=== PATIENT | male | born 1975 | race Caucasian/White ===

== ENCOUNTER 2025-01-12 19:20 | Emergency (ER) | payer SELFPAY ==
[2025-01-12] MEDS: Dexamethasone 4 MG/ML SDV IM ONE (20:11)
[2025-01-12] MEDS: Dexamethasone 4 MG/ML SDV IVPUSH ONE (20:24)
== END 2025-01-12 20:24 | disposition home or self-care (01) ==
LOC: VM.ED 19:20
DX: J30.9 Allergic rhinitis, unspecified (principal)
CPT/HCPCS: 71045; 96372; 99283; 99284; J1100

== ENCOUNTER 2025-08-26 12:27 | Emergency (ER) | payer SELFPAY ==
[2025-08-26] MEDS ORDERED: Sodium Chloride 0.9% 10 ML Syringe FLUSH PRN (12:41)
[2025-08-26 12:59] LABS: BASOPHILS ABSOLUTE AUTO 0.0 x10^3/uL (0.0-0.2); BASOPHILS PERCENT AUTO 0.3 % (0.2-1.2); EOSINOPHILS ABSOLUTE AUTO 0.1 x10^3/uL (0.0-0.5); EOSINOPHILS PERCENT AUTO 1.3 % (0.0-4.0); IMMATURE GRAN ABSOLUTE AUTO 0.01 x10^3/uL (0.00-0.07); IMMATURE GRAN PERCENT AUTO 0.20 % (0.00-0.43); LYMPHOCYTES ABSOLUTE AUTO 1.6 x10^3/uL (1.0-4.8); LYMPHOCYTES PERCENT AUTO 25.6 % (25.0-50.0); MONOCYTES ABSOLUTE AUTO 0.7 x10^3/uL (0.0-0.8); MONOCYTES PERCENT AUTO 10.2 % (2.0-11.0); NEUTROPHILS ABSOLUTE AUTO 4.0 x10^3/uL (1.8-7.7); NEUTROPHILS PERCENT AUTO 62.4 % (50.0-80.0); PLATELET COUNT,PLT 250 x10^3/uL (130-400); RED BLOOD CELL COUNT 4.37 x10^6/uL (4.5-6.0); WHITE BLOOD CELL COUNT,WBC 6.4 x10^3/uL (4.0-10.0)
[2025-08-26] MEDS: Alum Hydrox/Mag Hydrox/Simeth 30 ML, Lidocaine 2% 15 ML, Promethazine 12.5 MG PO ONE (13:06)
[2025-08-26 13:23] LABS: A/G RATIO 0.82; ALANINE AMINOTRANSFERASE,ALT 24 U/L (16-63); ASPARTATE AMNIOTRANSFERASE,AST 21 U/L (15-37); BILIRUBIN TOTAL 0.2 mg/dL (0.2-1.0); BLOOD UREA NITROGEN,BUN 16 mg/dL (7-18); CARBON DIOXIDE,CO2 26 mmol/L (21-32); CHLORIDE,CL 105 mmol/L (98-107); CREATININE 0.8 mg/dL (0.70-1.30); ESTIMATED GFR 108 mL/min (>=60); GLUCOSE RANDOM 114 mg/dL (70-99); POTASSIUM,K 4.1 mmol/L (3.5-5.1); PROTEIN TOTAL,TP 7.1 g/dL (6.4-8.2); SODIUM,NA 140 mmol/L (136-145)
== END 2025-08-26 13:45 | disposition home or self-care (01) ==
LOC: SUPCPDRO 12:27 → VM.ED 12:27
DX: K29.70 Gastritis, unspecified, without bleeding (principal); Z79.899 Other long term (current) drug therapy
CPT/HCPCS: 71045; 80053; 83690; 83735; 84484; 85025; 93005; 93010; 96374; 99284; 99284-25; A9270-GY; J2470